=== PATIENT | male | born 1975 | race Caucasian/White ===

== ENCOUNTER 2019-05-31 11:50 | Inpatient (IN) | payer MEDICAID ==
[~2019-05-31] VITALS: Ht 180.3 cm; Wt 75.0 kg
[~2019-05-31 11:50] MED LIST: CYCL-1 PO
[2019-05-31] MEDS ORDERED: morphine 4 MG/ML inj SYRINge IV PRN ×2 (12:20→13:45)
[2019-05-31 12:40] LABS: BASOPHILS # (AUTO) 0.1 X10'3 (0-0.2); BASOPHILS % (AUTO) 0.8 % (0-1); EOSINOPHILS # (AUTO) 0.1 X10'3 (0-0.9); EOSINOPHILS % (AUTO) 0.6 % (0-6); HEMATOCRIT 42.7 % (42.0-52.0); HEMOGLOBIN 14.6 g/dl (14.0-17.9); LYMPHOCYTES # (AUTO) 1.3 X10'3 (1.1-4.8); LYMPHOCYTES % (AUTO) 13.9 % (21-51); MEAN CORPUSCULAR HEMOGLOBIN 30.7 PG (27.0-31.0); MEAN CORPUSCULAR HGB CONC 34.1 g/dL (33.0-36.5); MEAN PLATELET VOLUME 7.5 FL (7.4-10.4); MONOCYTES # (AUTO) 0.7 X10'3 (0-0.9); MONOCYTES % (AUTO) 7.9 % (2-12); NEUTROPHILS # (AUTO) 7.1 X10'3 (1.8-7.7); NEUTROPHILS % (AUTO) 76.8 % (42-75); PLATELET COUNT 327 X10'3 (140-440); RED BLOOD COUNT 4.74 X10'6 (4.70-6.10); RED CELL DISTRIBUTION WIDTH 13.5 % (11.5-14.5); WHITE BLOOD COUNT 9.2 X10'3 (4.5-11.0)
[2019-05-31 12:55] LABS: ALANINE AMINOTRANSFERASE 24 U/L (12-78); ALBUMIN 3.7 G/DL (3.4-5.0); ALBUMIN/GLOBULIN RATIO 0.9 (1.1-1.5); ALKALINE PHOSPHATASE 76 IU/L (46-116); ANION GAP 9 (8-16); ASPARTATE AMINO TRANSFERASE 21 U/L (10-37); BILIRUBIN,TOTAL 1.3 MG/DL (0.1-1.0); BLOOD UREA NITROGEN 9 MG/DL (7-18); BUN/CREATININE RATIO 8.7 (5.4-32.0); CALCIUM 9.3 MG/DL (8.5-10.1); CHLORIDE 104 MMOL/L (99-107); CREATININE 1.04 MG/DL (0.60-1.10); GLUCOSE 75 MG/DL (70-104); POTASSIUM 3.5 MMOL/L (3.5-5.1); SODIUM 141 MMOL/L (135-145); TOTAL CARBON DIOXIDE 27.8 MMOL/L (24-32); TOTAL PROTEIN 7.6 G/DL (6.4-8.2); eGFR 77 ML/MIN
[2019-05-31] MEDS ORDERED: piperacillin/tazo 3.375gm/50ml 50 ML IV ONE (13:45)
[2019-05-31] MEDS ORDERED: normal saline 1000ML IV soln IVB ONE (13:45)
[2019-05-31] MEDS ORDERED: morphine 2 MG/ML inj. syringe IV PRN (14:30)
[2019-05-31] MEDS ORDERED: mag hydrox/Alum hydrox/simeth 30ml oral suspension PO PRN (14:30)
[2019-05-31] MEDS ORDERED: ondansetron/PF 4mg/2ml inj IV PRN (14:30)
[2019-05-31] MEDS ORDERED: magnesium hydroxide 30ml (MOM) UD suspension PO PRN (14:30)
[2019-05-31] MEDS ORDERED: acetaminophen 325mg tablet PO PRN (14:30)
[2019-05-31] MEDS ORDERED: iohexol 300mg/ml 100ml inj. ONE (14:35)
[2019-05-31] MEDS ORDERED: NO HOME MEDS (14:43)
[2019-05-31 14:57] LABS: CLARITY,URINE CLEAR (Clear); COLOR,URINE YELLOW (Yellow); GLUCOSE, URINE NEGATIVE (Neg); KETONES,URINE NEGATIVE (Neg); LEUKOCYTE ESTERASE ,URINE NEGATIVE (Neg); NITRITES, URINE NEGATIVE (Neg); OCCULT BLOOD,URINE TRACE-INTACT (Neg); PH,URINE 8.5 (4.8-8.0); PROTEIN,URINE NEGATIVE (Neg)
[2019-05-31 15:01] LABS: UA COLLECTION TYPE CLN CATCH MIDSTREAM
[2019-05-31 15:03] LABS: SQUAMOUS EPITHELIAL CELL,UR FEW /LPF (FEW)
[2019-05-31 15:04] LABS: BACTERIA,URINE FEW /HPF (Neg); RBC,URINE 0-2 /HPF (0-2); WBC,URINE 0-4 /HPF (0-4)
[2019-05-31] MEDS: ceFAZolin 1GM/D5W- ADD-VANTAGE 50 ML IV SCH ×2 (15:14→23:46)
[2019-05-31] MEDS: normal saline 1000ml 1,000 ML IV SCH ×2 (15:15→23:52)
[2019-05-31] MEDS: morphine 2 MG/ML inj. syringe IV PRN (19:45)
[2019-05-31] MEDS: heparin, porcine 5000 units/ml vial SQ SCH (20:56)
--- NOTE | 2019-05-31 20:59 | NUR ---
Patient in room ED 13. I have received report from JUDITH Harvey and had the opportunity to ask questions and assume patient care.
[2019-05-31 21:20] VITALS: BP 137/93
[2019-06-01] VITALS: BP 133/81
[2019-06-01 05:19] LABS: HEMOGLOBIN 13.2 g/dl (14.0-17.9); MEAN PLATELET VOLUME 7.7 FL (7.4-10.4)
[2019-06-01 05:23] LABS: BASOPHILS # (AUTO) 0.1 X10'3 (0-0.2); BASOPHILS % (AUTO) 0.9 % (0-1); EOSINOPHILS # (AUTO) 0.3 X10'3 (0-0.9); EOSINOPHILS % (AUTO) 3.1 % (0-6); HEMATOCRIT 38.5 % (42.0-52.0); LYMPHOCYTES # (AUTO) 1.3 X10'3 (1.1-4.8); LYMPHOCYTES % (AUTO) 16.5 % (21-51); MEAN CORPUSCULAR HEMOGLOBIN 30.8 PG (27.0-31.0); MEAN CORPUSCULAR HGB CONC 34.2 g/dL (33.0-36.5); MEAN CORPUSCULAR VOLUME 89.8 FL (78-98); MONOCYTES # (AUTO) 0.9 X10'3 (0-0.9); MONOCYTES % (AUTO) 10.6 % (2-12); NEUTROPHILS # (AUTO) 5.6 X10'3 (1.8-7.7); NEUTROPHILS % (AUTO) 68.9 % (42-75); PLATELET COUNT 304 X10'3 (140-440); RED BLOOD COUNT 4.29 X10'6 (4.70-6.10); RED CELL DISTRIBUTION WIDTH 13.7 % (11.5-14.5); WHITE BLOOD COUNT 8.2 X10'3 (4.5-11.0)
[2019-06-01 05:30] LABS: ANION GAP 8 (8-16); BLOOD UREA NITROGEN 8 MG/DL (7-18); BUN/CREATININE RATIO 9.8 (5.4-32.0); CALCIUM 7.8 MG/DL (8.5-10.1); CHLORIDE 107 MMOL/L (99-107); CREATININE 0.82 MG/DL (0.60-1.10); GLUCOSE 93 MG/DL (70-104); POTASSIUM 3.6 MMOL/L (3.5-5.1); SODIUM 141 MMOL/L (135-145); TOTAL CARBON DIOXIDE 26.2 MMOL/L (24-32); eGFR > 90 ML/MIN
--- NOTE | 2019-06-01 06:24 | NUR ---
Problems reprioritized. Patient report given, questions answered & plan of care reviewed with JUDITH Collazo.
[2019-06-01] MEDS: ceFAZolin 1GM/D5W- ADD-VANTAGE 50 ML IV SCH ×3 (07:39→23:11)
[2019-06-01] MEDS: heparin, porcine 5000 units/ml vial SQ SCH ×2 (07:39→20:21)
[2019-06-01] MEDS: morphine 2 MG/ML inj. syringe IV PRN ×2 (07:45→13:05)
[2019-06-01] MEDS: normal saline 1000ml 1,000 ML IV SCH ×2 (10:11→20:21)
[2019-06-01 12:08] LABS: TOTAL CELLS COUNTED 100
[2019-06-01 12:09] LABS: PLATELET ESTIMATE NORMAL
--- NOTE | 2019-06-01 13:58 | NUR ---
Malnutrition consult: Pt seen at bedside reports less than 10 lb wt loss in three months r/t increased stress and pain. Pt states UBW is 175 lbs, pt currently 165 lbs. This is non-significant wt loss of 5% in three months. Pt currently on regular diet documented with 100% PO intake meeting nutrient needs. Pt with no decrease in muscle strength and with 3+ mod non-pitting edema to right thigh. Pt currently lacks a minimum of two criteria for malnutrition at this time. Pt denies any food allergies, difficulty chewing/swallowing, or constipation/diarrhea. Pt admit with cellulitis of right leg with lymphadenitis provided with written and verbal protein education with RD contact information. Pt agreeable to [place] yogurt TID and requests salsa QD with breakfast and Mrs. Loza seasoning TID to add more flavor to food. Preferences d/w dietary. Will continue to follow. Addendum: 06/01/19 at [address] Amended: Links added.
[2019-06-01] MEDS: HYDROcodone/acetaminophen 10/325mg tab PO PRN ×2 (16:14→20:30)
--- NOTE | 2019-06-01 18:35 | NUR ---
Problems reprioritized. Patient report given, questions answered & plan of care reviewed with arnulfo blum.
--- NOTE | 2019-06-01 18:39 | NUR ---
Patient in room [facility]. I have received report from Vale Somers and had the opportunity to ask questions and assume patient care. Addendum: 06/01/19 at 1839 by Lisa Martino RN Amended: Links added.
[2019-06-01 20:00] VITALS: BP 126/79
[2019-06-01] MEDS: lactobacillus rhamnosus 10,000 MMU CELLS/CAPSULE PO SCH (20:21)
--- NOTE | 2019-06-01 20:25 | NUR ---
pt awake and alert c/o pain 02/05 and medicated for pain for this.
--- NOTE | 2019-06-01 22:25 | NUR ---
pt used urinal no complaints at this time.
[2019-06-02] VITALS: BP 123/78
--- NOTE | 2019-06-02 00:31 | NUR ---
pt awake watching a movie. no changes.
[2019-06-02] MEDS: HYDROcodone/acetaminophen 10/325mg tab PO PRN ×3 (00:49→10:03)
--- NOTE | 2019-06-02 00:51 | NUR ---
pt up brp to void brush teeth then medicated for pain 02/05 due to ambulating says it shoots pain in the groin. the the norco is working better for him than the morphine iv for the pain.
--- NOTE | 2019-06-02 02:44 | NUR ---
resting eyesclosed without changes.
--- NOTE | 2019-06-02 03:56 | NUR ---
pt resting eyes closed, no s&s of distress.
--- NOTE | 2019-06-02 04:46 | NUR ---
resting without changes.
[2019-06-02] MEDS: normal saline 1000ml 1,000 ML IV SCH (05:25)
--- NOTE | 2019-06-02 06:31 | NUR ---
Problems reprioritized. Patient report given, questions answered & plan of care reviewed with Catrachita Somers. Addendum: 06/02/19 at 0636 by Lisa Martino RN Amended: Links added.
--- NOTE | 2019-06-02 06:38 | NUR ---
Patient in room [facility]. I have received report from JUDITH Gonzalez and had the opportunity to ask questions and assume patient care.
[2019-06-02 07:00] VITALS: BP 106/70
[2019-06-02 07:37] LABS: BASOPHILS # (AUTO) 0.1 X10'3 (0-0.2); BASOPHILS % (AUTO) 1.2 % (0-1); EOSINOPHILS # (AUTO) 0.3 X10'3 (0-0.9); EOSINOPHILS % (AUTO) 3.9 % (0-6); HEMOGLOBIN 13.2 g/dl (14.0-17.9); LYMPHOCYTES # (AUTO) 1.2 X10'3 (1.1-4.8); LYMPHOCYTES % (AUTO) 16.5 % (21-51); MEAN CORPUSCULAR HEMOGLOBIN 30.3 PG (27.0-31.0); MEAN CORPUSCULAR HGB CONC 33.8 g/dL (33.0-36.5); MEAN CORPUSCULAR VOLUME 89.7 FL (78-98); MEAN PLATELET VOLUME 8.1 FL (7.4-10.4); MONOCYTES # (AUTO) 0.7 X10'3 (0-0.9); MONOCYTES % (AUTO) 9.7 % (2-12); NEUTROPHILS # (AUTO) 4.9 X10'3 (1.8-7.7); NEUTROPHILS % (AUTO) 68.7 % (42-75); PLATELET COUNT 314 X10'3 (140-440); RED BLOOD COUNT 4.34 X10'6 (4.70-6.10); RED CELL DISTRIBUTION WIDTH 13.3 % (11.5-14.5); WHITE BLOOD COUNT 7.1 X10'3 (4.5-11.0)
[2019-06-02 07:42] LABS: ALBUMIN 3.1 G/DL (3.4-5.0); ANION GAP 7 (8-16); BLOOD UREA NITROGEN 6 MG/DL (7-18); BUN/CREATININE RATIO 6.6 (5.4-32.0); CALCIUM 8.8 MG/DL (8.5-10.1); CHLORIDE 106 MMOL/L (99-107); CREATININE 0.91 MG/DL (0.60-1.10); GLUCOSE 93 MG/DL (70-104); POTASSIUM 3.9 MMOL/L (3.5-5.1); SODIUM 143 MMOL/L (135-145); TOTAL CARBON DIOXIDE 29.6 MMOL/L (24-32); eGFR 90 ML/MIN
[2019-06-02] MEDS: ceFAZolin 1GM/D5W- ADD-VANTAGE 50 ML IV SCH (08:58)
[2019-06-02] MEDS: lactobacillus rhamnosus 10,000 MMU CELLS/CAPSULE PO SCH (08:58)
[2019-06-02] MEDS: heparin, porcine 5000 units/ml vial SQ SCH (08:59)
[2019-06-02 11:00] VITALS: BP 167/101
[2019-06-02] MEDS ORDERED: HYDR-4353 PO (11:05)
[2019-06-02] MEDS ORDERED: CEPH500C5 PO (11:05)
--- NOTE | 2019-06-02 13:42 | NUR ---
Pt discharged to home at 1300, with all belongings, in private vehicle. Discharge instructions and medications reviewed. New prescriptions escripted to [facility] on [facility] triplicate given to pt with instructions to take to pharmacy of choice to fill. IV DC'd, cannula intact. Pt instructed to follow up with PCP in 2-3 days and to return to ED if symptoms return. Pt escorted to front lobby by PCT.
== END 2019-06-02 13:00 | disposition home or self-care (01) | DRG 383 ==
LOC: ER 11:51 → ED HOLD 14:26 → SUR 3N 21:10
PROVIDERS: ADMIT Family Medicine; ATTEND Family Medicine
PROC: BQ2R1ZZ Computerized Tomography (CT Scan) of Right Lower Extremity using Low Osmolar Contrast (ICD-10-PCS; principal; 2019-05-31)
DX: L03.115 Cellulitis of right lower limb (principal); F12.90 Cannabis use, unspecified, uncomplicated; F17.210 Nicotine dependence, cigarettes, uncomplicated; L02.415 Cutaneous abscess of right lower limb; L04.3 Acute lymphadenitis of lower limb; L04.1 Acute lymphadenitis of trunk; Z79.899 Other long term (current) drug therapy
CPT/HCPCS: 36415; 73701; 80048; 80053; 81001; 85025; 87081; 96365; 96375; 99285; G0378; J0690; J1644; J2270; J2543; J7030; Q9967

== ENCOUNTER 2019-08-29 17:10 | Emergency (ER) | payer MEDICAID ==
[~2019-08-29] VITALS: Ht 177.8 cm; Wt 77.3 kg
[~2019-08-29 17:10] MED LIST changes: +CEPH500C5 PO; -CYCL-1 PO
[2019-08-29 17:21] VITALS: BP 152/93
[2019-08-29] MEDS ORDERED: PENI500T2 PO (17:58)
[2019-08-29] MEDS ORDERED: HYDR-4383 PO (17:58)
== END 2019-08-29 18:11 | disposition home or self-care (01) ==
LOC: ER 17:11
DX: K04.7 Periapical abscess without sinus (principal); F12.90 Cannabis use, unspecified, uncomplicated; Z79.899 Other long term (current) drug therapy
CPT/HCPCS: 99283

== ENCOUNTER 2023-02-24 15:49 | Emergency (ER) | payer MEDICAID ==
[~2023-02-24] VITALS: Ht 177.8 cm; Wt 79.5 kg
[~2023-02-24 15:49] MED LIST changes: -CEPH500C5 PO; +HYDR-4383 PO
[2023-02-24 15:52] VITALS: BP 118/79
[2023-02-24] MEDS ORDERED: LIDOcaine 1% 30ml preserv. free vial IJ ONE (16:10)
[2023-02-24] MEDS ORDERED: oxyCODONE/APAP 10/325mg tablet PO ONE (16:10)
[2023-02-24] MEDS ORDERED: LORazepam 1 MG tablet PO ONE (17:00)
[2023-02-24] MEDS ORDERED: HYDR-3973 PO (17:14)
[2023-02-24] MEDS ORDERED: IBUP-1986 PO (17:16)
== END 2023-02-24 17:36 | disposition home or self-care (01) ==
LOC: ER 15:50
DX: S62.396A Other fracture of fifth metacarpal bone, right hand, initial encounter for closed fracture (principal); F12.90 Cannabis use, unspecified, uncomplicated; Z56.0 Unemployment, unspecified; W22.01XA Walked into wall, initial encounter; Y93.89 Activity, other specified; Y92.89 Other specified places as the place of occurrence of the external cause; Y99.8 Other external cause status
CPT/HCPCS: 26605; 73120; 73130; 99284; A6449

== ENCOUNTER 2024-01-16 13:12 | Emergency (ER) | payer MEDICAID ==
[~2024-01-16 13:12] MED LIST changes: +IBUP-1986 PO
[2024-01-17] MEDS ORDERED: SULF1TAB48 PO (11:54)
== END 2024-01-16 15:06 | disposition left against medical advice (07) ==
LOC: ER 13:12
DX: T63.301A Toxic effect of unspecified spider venom, accidental (unintentional), initial encounter (principal); Z53.21 Procedure and treatment not carried out due to patient leaving prior to being seen by health care provider; Y92.89 Other specified places as the place of occurrence of the external cause

== ENCOUNTER 2024-01-17 11:28 | Emergency (ER) | payer MEDICAID ==
[~2024-01-17] VITALS: Ht 177.8 cm; Wt 79.0 kg
[2024-01-17 11:39] VITALS: BP 154/91; PULSE 89; RESP 16; TEMP 99; O2SAT 98
[2024-01-17] MEDS ORDERED: SULF1TAB48 PO (11:54)
== END 2024-01-17 13:57 | disposition home or self-care (01) ==
LOC: ER 11:29
DX: L02.31 Cutaneous abscess of buttock (principal); F12.90 Cannabis use, unspecified, uncomplicated
CPT/HCPCS: 99283